=== PATIENT | female | born 1990 | race Caucasian/White ===

== ENCOUNTER 2017-02-27 06:43 | Inpatient (IN) | payer OTHER ==
[2017-02-27] MEDS ORDERED: cefOXitin 2 GM Vial ONE (06:44)
[2017-02-27] MEDS ORDERED: Gabapentin 300 MG Cap PO ONE (07:00)
[2017-02-27] MEDS ORDERED: Celecoxib 200 MG Cap PO ONE (07:00)
[2017-02-27] MEDS ORDERED: Scopolamine 1.5 MG Transdermal Patch TRDERM SCH (07:00)
[2017-02-27] MEDS: Acetaminophen 500 MG Tab PO ONE ×2 (07:23→07:24)
[2017-02-27] MEDS ORDERED: Dextrose 5%-Lactated Ringers 1,000 ML IV SCH ×2 (07:30→12:15)
[2017-02-27] MEDS ORDERED: Propofol 200 MG/20 ML SDV ONE (08:08)
[2017-02-27] MEDS ORDERED: Neostigmine Methylsulfate 1 MG/ML 5 ML Syringe ONE (08:08)
[2017-02-27] MEDS ORDERED: Ondansetron 4 MG/2 ML SDV ONE ×2 (08:08→11:31)
[2017-02-27] MEDS ORDERED: fentaNYL 250 MCG/5 ML SDV ONE (08:08)
[2017-02-27] MEDS ORDERED: Midazolam 1 MG/ML 2 ML SDV ONE (08:08)
[2017-02-27] MEDS ORDERED: Succinylcholine/Normal Saline 200 MG/10 ML Syringe ONE (08:08)
[2017-02-27] MEDS ORDERED: Dexamethasone 4 MG/ML SDV ONE (08:08)
[2017-02-27] MEDS ORDERED: Rocuronium 50 MG/5 ML Vial ONE (08:08)
[2017-02-27] MEDS ORDERED: cefOXitin 2 GM in Sodium Chloride 0.9% 50 ML IV ONE (08:30)
[2017-02-27] MEDS: Ropivacaine 60 ML, Dexamethasone 8 MG, EPINEPHrine 0.4 MG, Sodium Chloride 0.9% 17.6 ML NERVRT ONE ×8 (08:45→16:22)
[2017-02-27] MEDS ORDERED: Ketamine 500 MG/5 ML MDV IV ONE (12:00)
[2017-02-27] MEDS ORDERED: Lidocaine 2% 100 MG/5 ML Syringe IVPUSH ONE (12:00)
[2017-02-27] MEDS ORDERED: hydrOXYzine HCl 50 MG/ML SDV IM PRN (13:00)
[2017-02-27] MEDS ORDERED: Labetalol 20 MG/4 ML Syringe IVPUSH PRN (13:00)
[2017-02-27] MEDS ORDERED: SCOPOLAMINE PATCH ASK TOP SCH (13:00)
[2017-02-27] MEDS ORDERED: Ondansetron 4 MG/2 ML SDV IVPUSH PRN (13:00)
[2017-02-27] MEDS: Lidocaine 0.4%/D5W 2 GM/500 ML BAG IV SCH (13:25)
[2017-02-27] MEDS: Pantoprazole 40 MG Vial IVPUSH SCH (13:26)
[2017-02-27] MEDS: Gabapentin 250 MG/5 ML Solution ML 470 ML Bottle PO SCH ×2 (14:41→21:18)
[2017-02-27] MEDS: cefOXitin 2 GM in Sodium Chloride 0.9% 50 ML IV SCH ×2 (14:41→21:12)
[2017-02-27] MEDS ORDERED: MVI, Adult with Vitamin K 10 ML, Thiamine 200 MG, Chromium/Copper/Mang/Selen/Zn 1 ML in... IV SCH ×4 (16:00)
[2017-02-27] MEDS: Acetaminophen Soln 650 MG/20.3 ML UD Cup PO SCH ×2 (16:23→21:18)
[2017-02-27] MEDS: Heparin Sodium 5,000 Units/ML Vial SUBCUT SCH (17:14)
[2017-02-27] MEDS ORDERED: Metoclopramide 10 MG/2 ML SDV IVPUSH PRN (17:33)
[2017-02-27] MEDS ORDERED: diphenhydrAMINE 50 MG/ML SDV IVPUSH PRN (17:34)
[2017-02-27] MEDS ORDERED: Phenol/Sodium Phenolate Mouthwash 180 ML Bottle PO PRN (23:14)
[2017-02-28] MEDS: cefOXitin 2 GM in Sodium Chloride 0.9% 50 ML IV SCH ×2 (02:00→07:59)
[2017-02-28] MEDS: Lidocaine 0.4%/D5W 2 GM/500 ML BAG IV SCH ×2 (02:19→05:17)
[2017-02-28] MEDS ORDERED: Iohexol 647 MG/ML 50 ML SDV PO STA (04:10)
[2017-02-28] MEDS: Acetaminophen Soln 650 MG/20.3 ML UD Cup PO SCH ×4 (05:13→21:13)
[2017-02-28] MEDS: Heparin Sodium 5,000 Units/ML Vial SUBCUT SCH ×2 (05:13→17:46)
[2017-02-28] MEDS: Celecoxib 200 MG Cap PO SCH (07:59)
[2017-02-28] MEDS ORDERED: Dextrose 5%-Lactated Ringers 1,000 ML IV SCH ×2 (08:25→08:30)
--- NOTE | 2017-02-28 09:03 | CR ---
Limited upper GI The patient is status post Soo-en-Y gastric bypass. There are left upper quadrant drains in place. There is no extravasation of contrast. The gastric pouch empties readily into a nondilated Soo limb . No complications are evident. Impression: 1. Status post Soo-en-Y gastric bypass without evidence for complication.
[2017-02-28] MEDS: SCOPOLAMINE PATCH CHECK TOP SCH (09:24)
[2017-02-28] MEDS: Gabapentin 250 MG/5 ML Solution ML 470 ML Bottle PO SCH ×3 (09:27→21:15)
[2017-02-28] MEDS: Pantoprazole 40 MG Vial IVPUSH SCH (11:09)
--- NOTE | 2017-02-28 12:50 | PCM.SURGPN ---
- General Info Date of Service: 02/28/17 Date of Surgery/Procedure: 02/27/17 POD#: 1 Functional Status: Reports: pain controlled, ambulating - Review of Systems General: Reports: No Symptoms Pulmonary: Reports: no symptoms Cardiovascular: Reports: No Symptoms Gastrointestinal: Reports: No symptoms Systems Review Comment:: Patient reports her abdominal pain is well controlled with only minimal pain in LUQ. She has been ambulating well. Patient slightly tachycardic overnight with HRs ranging 105-117. Her intake was 3795mL. - Patient Data Vitals - most recent: Last Vital Signs Temp 37.2 C 02/28/17 11:05 Pulse 86 02/28/17 11:05 Resp 15 02/28/17 11:05 BP 125/74 02/28/17 11:05 Pulse Ox 94 L 02/28/17 11:05 Weight - most recent: 150.956 kg I&O - last 24 hours: Intake & Output 02/27/17 02/28/17 02/28/17 22:59 06:59 14:59 Intake Total 1372 1798 647 Output Total 240 2530 750 Balance 1132 -732 -103 Med Orders - Current: Current Medications Acetaminophen (Tylenol) 650 mg PO Q6H [facility] Last Admin: 02/28/17 09:24 Dose: 650 mg Celecoxib (Celebrex) 200 mg PO DAILY@0800 [facility] Last Admin: 02/28/17 07:59 Dose: 200 mg Cyanocobalamin (Vitamin B12) 1,000 mcg IM ONETIME ONE Stop: 03/01/17 09:01 Diphenhydramine HCl (Benadryl) 25 - 50 mg IVPUSH Q4H PRN PRN Reason: ITCHING Gabapentin (Neurontin) 300 mg PO TID [facility] Last Admin: 02/28/17 09:27 Dose: 300 mg Heparin Sodium (Porcine) (Heparin Sodium) 5,000 units SUBCUT Q12H [facility] Last Admin: 02/28/17 05:13 Dose: 5,000 units Hydroxyzine HCl (Vistaril) 75 - 100 mg IM Q4H PRN PRN Reason: PAIN NOT CONTROLLED BY APPLICATION INTEGRATION ARCHITECT Multivitamins/Minerals 10 ml/Thiamine HCl 200 mg/ Chromium/Copper/Manganese/ Seleni/Zn 1 ml/ Dextrose/Lactated Ringer's 1,013 mls @ 175 mls/hr IV DAILY@ 1600 [facility] Last Admin: 02/27/17 16:22 Dose: 175 mls/hr Dextrose/Lactated Ringer's (Dextrose 5%-Lactated Ringers) 1,000 mls @ 100 mls/ hr IV ASDIRECTED [facility] Last Admin: 02/28/17 11:09 Dose: 100 mls/hr Labetalol HCl (Normodyne) 5 - 15 mg IVPUSH Q1H PRN PRN Reason: SBP over 160 OR DBP over 95 Metoclopramide HCl (Reglan) 10 mg IVPUSH Q6H PRN PRN Reason: nausea Scopolamine Patch (Check) 1 each TOP DAILY [facility] Last Admin: 02/28/17 09:24 Dose: Not Given Ondansetron HCl (Zofran) 4 mg IVPUSH Q4H PRN PRN Reason: Nausea/Vomiting Last Admin: 02/27/17 16:25 Dose: 4 mg Pantoprazole Sodium (Protonix Iv) 40 mg IVPUSH Q24H [facility] Last Admin: 02/28/17 11:09 Dose: 40 mg Phenol (Phenaseptic Liquid) 0 ml PO ASDIRECTED PRN PRN Reason: Sore Throat Last Admin: 02/27/17 23:45 Dose: 2 sprays Scopolamine (Transderm-Scop) 1.5 mg TRDERM Q72H [facility] Stop: 03/02/17 05:00 Last Admin: 02/27/17 07:25 Dose: 1.5 mg Scopolamine (Transderm-Scop) 1.5 mg TOP ASDIRECTED [facility] Stop: 03/02/17 16:00 Discontinued Medications Acetaminophen (Tylenol Extra Strength) 1,000 mg PO ONETIME ONE Stop: 02/27/17 07:01 Last Admin: 02/27/17 07:24 Dose: 500 mg Cefoxitin Sodium (Mefoxin) Confirm Administered Dose 2 gm .ROUTE .STK-MED ONE Stop: 02/27/17 06:45 Last Admin: 02/27/17 09:08 Dose: 2 gm Celecoxib (Celebrex) 200 mg PO ONETIME ONE Stop: 02/27/17 07:01 Last Admin: 02/27/17 07:21 Dose: 200 mg Ropivacaine 60 ml/Dexamethasone 8 mg/Epinephrine HCl 0.4 mg/ Sodium Chloride 17.6 ml 0 ml NERVRT ONETIME ONE Stop: 02/27/17 12:01 Last Admin: 02/27/17 16:22 Dose: Not Given Dexamethasone (Dexamethasone) Confirm Administered Dose 4 mg .ROUTE .STK-MED ONE Stop: 02/27/17 08:09 Fentanyl (Sublimaze) Confirm Administered Dose 250 mcg .ROUTE .STK-MED ONE Stop: 02/27/17 08:09 Gabapentin (Neurontin) 300 mg PO ONETIME ONE Stop: 02/27/17 07:01 Last Admin: 02/27/17 07:23 Dose: 300 mg Glycopyrrolate () Confirm Administered Dose 1 mg .ROUTE .STK-MED ONE Stop: 02/27/17 08:09 Lidocaine HCl/Dextrose (Lidocaine 2 Gm/D5w 500 Ml) 2 gm in 500 mls @ 30 mls/hr IV .[id number] [facility] PRN Reason: 2 MG/MIN Stop: 02/28/17 11:00 Last Admin: 02/28/17 05:17 Dose: Not Given Ketamine HCl 100 mg/ Sodium (Chloride) 100 mls @ 17.8 mls/hr IV ASDIRECTED [facility] Stop: 02/27/17 13:45 Dextrose/Lactated Ringer's (Dextrose 5%-Lactated Ringers) 1,000 mls @ 100 mls/ hr IV ASDIRECTED [facility] Last Admin: 02/27/17 07:28 Dose: 100 mls/hr Cefoxitin Sodium 2 gm/ Sodium (Chloride) 50 mls @ 100 mls/hr IV ONETIME ONE Stop: 02/27/17 08:59 Last Admin: 02/27/17 08:17 Dose: 100 mls/hr Dextrose/Lactated Ringer's (Dextrose 5%-Lactated Ringers) 1,000 mls @ 175 mls/ hr IV ASDIRECTED [facility] Last Admin: 02/27/17 21:16 Dose: 175 mls/hr Cefoxitin Sodium 2 gm/ Sodium (Chloride) 50 mls @ 100 mls/hr IV Q6H [facility] Stop: 02/28/17 08:29 Last Admin: 02/28/17 07:59 Dose: 100 mls/hr Dextrose/Lactated Ringer's (Dextrose 5%-Lactated Ringers) 1,000 mls @ 100 mls/ hr IV ASDIRECTED [facility] Iohexol (Omnipaque-300) 50 ml PO ONETIME STA Stop: 02/28/17 04:11 Last Admin: 02/28/17 04:18 Dose: 50 ml Ketamine HCl (Ketalar) 30 mg IV ONETIME ONE Stop: 02/27/17 12:01 Last Admin: 02/27/17 20:19 Dose: Not Given Lidocaine HCl (Xylocaine 2%) 145 mg IVPUSH ONETIME ONE Stop: 02/27/17 12:01 Last Admin: 02/27/17 20:19 Dose: Not Given Midazolam HCl (Versed 1 Mg/Ml) Confirm Administered Dose 2 mg .ROUTE .STK-MED ONE Stop: 02/27/17 08:09 Neostigmine Methylsulfate (Neostigmine) Confirm Administered Dose 5 mg .ROUTE .STK-MED ONE Stop: 02/27/17 08:09 Ondansetron HCl (Zofran) Confirm Administered Dose 4 mg .ROUTE .STK-MED ONE Stop: 02/27/17 08:09 Ondansetron HCl (Zofran) Confirm Administered Dose 4 mg .ROUTE .STK-MED ONE Stop: 02/27/17 11:32 Last Admin: 02/27/17 11:38 Dose: 4 mg Propofol (Diprivan 20 Ml) Confirm Administered Dose 200 mg .ROUTE .STK-MED ONE Stop: 02/27/17 08:09 Rocuronium [place] (Zemuron) Confirm Administered Dose 50 mg .ROUTE .STK-MED ONE Stop: 02/27/17 08:09 Sodium Chloride (Normal Saline) 500 ml IRR .STK-MED ONE Stop: 02/27/17 09:10 Last Admin: 02/27/17 09:09 Dose: 500 ml Succinylcholine Chloride (Succinylcholine In Ns Pf) Confirm Administered Dose 200 mg .ROUTE .STK-MED ONE Stop: 02/27/17 08:09 - Exam Wound/Incisions: dressing dry and intact General: alert, oriented HEENT: Pupils equal, Pupils reactive, EOMI, Mucous membr. moist/pink Neck: supple Lungs: Clear to auscultation, Normal respiratory effort Cardiovascular: Regular Rate, Regular Rhythm Abdomen: bowel sounds present, soft Extremities: no edema Skin: warm, dry, intact - Problem List Review Problem List Initiated/Reviewed/Updated: Yes - My Orders Last 24 Hours: Active Orders 24 hr Category Date Time Status Ambulate [RC] ASDIRECTED Care 02/27/17 12:34 Active Cardiac Monitoring [RC] .As Directed Care 02/27/17 12:39 Active Communication Order [RC] Q4HR Care 02/27/17 12:34 Active Communication Order [RC] ROUTINE Care 02/28/17 08:26 Active Drain Management [RC] ASDIRECTED Care 02/27/17 12:34 Active Salazar Catheter Insertion [Insert Urinary Catheter] [OM. Care 02/27/17 12:45 Ordered PC] Q24H Intake and Output [RC] QSHIFT Care 02/27/17 12:34 Active May Shower [RC] ASDIRECTED Care 02/28/17 08:24 Active Notify Provider Intake and Out [RC] ASDIRECTED Care 02/27/17 12:34 Active Overnight Pulse Oximetry [RC] Click To Edit Care 02/27/17 12:39 Active Oxygen Therapy [RC] PRN Care 02/27/17 12:34 Active Pulse Oximetry [RC] CONTINUOUS Care 02/27/17 12:34 Active RT BiPAP/CPAP [RC] ASDIRECTED Care 02/27/17 12:34 Active Up to Chair [RC] ASDIRECTED Care 02/27/17 12:34 Active Vital Signs [RC] Q4H Care 02/27/17 12:34 Active Consult to Bariatric Services [CONS] Routine Cons 02/27/17 12:34 Active Consult to Dry Kiln Feeder [CONS] Routine Cons 02/27/17 12:34 Active Consult to Pharmacy [CONS] Routine Cons 02/27/17 12:34 Active Respiratory Care Assess and Treatment [CONS] Routine Cons 02/27/17 12:34 Active Bariatric Diet [DIET] Diet 02/28/17 Breakfast Active Acetaminophen [Tylenol] Med 02/27/17 16:00 Active 650 mg PO Q6H Celecoxib [CeleBREX] Med 02/27/17 13:00 Active 200 mg PO DAILY@0800 Cyanocobalamin (Vitamin B12) [Vitamin B12] Med 03/01/17 09:00 Once 1,000 mcg IM ONETIME ONE Dextrose 5%-Lactated Ringers 1,000 ml Med 02/28/17 08:30 Active IV ASDIRECTED Gabapentin [Neurontin] Med 02/27/17 14:00 Active 300 mg PO TID Heparin Sodium Med 02/27/17 18:00 Active 5,000 units SUBCUT Q12H Labetalol [Normodyne] Med 02/27/17 13:00 Active 5 - 15 mg IVPUSH Q1H PRN MVI, Adult with Vitamin K [Infuvite Adult] 10 ml Med 02/27/17 16:00 Active Thiamine [Vitamin B-1] 200 mg Chromium/Copper/Guerrero/Selen/Zn [Multitrace-5 Concentrate ] 1 ml Dextrose 5%-Lactated Ringers 1,000 ml IV DAILY@1600 Metoclopramide [Reglan] Med 02/27/17 17:33 Active 10 mg IVPUSH Q6H PRN Non-Formulary Medication [NF Drug] Med 02/27/17 13:00 Active 1 each TOP DAILY Ondansetron [Zofran] Med 02/27/17 13:00 Active 4 mg IVPUSH Q4H PRN Pantoprazole [ProTONIX IV] Med 02/27/17 12:00 Active 40 mg IVPUSH Q24H Phenol/Sodium Phenolate [Phenaseptic Liquid] Med 02/27/17 23:14 Active 0 ml PO ASDIRECTED PRN Scopolamine [Transderm-Scop] Med 02/27/17 13:00 Active 1.5 mg TOP ASDIRECTED diphenhydrAMINE [Benadryl] Med 02/27/17 17:34 Active 25 - 50 mg IVPUSH Q4H PRN hydrOXYzine HCl [Vistaril] Med 02/27/17 13:00 Active 75 - 100 mg IM Q4H PRN Abdominal Binder [OM.PC] Per Unit Routine Oth 02/27/17 12:34 Ordered DME for Inpatients [OM.PC] Per Unit Routine Oth 02/27/17 12:34 Ordered PT Screening [OM.PC] Routine Oth 02/27/17 12:34 Active Pulse Oximetry Continuous Monitoring [OM.PC] Routine Oth 02/27/17 12:39 Ordered Sequential Compression Device [OM.PC] Per Unit Routine Oth 02/27/17 12:34 Ordered Specialty Bed [OM.PC] Continuous Oth 02/27/17 12:34 Ordered Medication Orders Acetaminophen (Tylenol) 650 mg PO Q6H [facility] Last Admin: 02/28/17 09:24 Dose: 650 mg Admin: 02/28/17 05:13 Dose: 650 mg Admin: 02/27/17 21:18 Dose: 650 mg Admin: 02/27/17 16:23 Dose: 650 mg Celecoxib (Celebrex) 200 mg PO DAILY@0800 [facility] Last Admin: 02/28/17 07:59 Dose: 200 mg Cyanocobalamin (Vitamin B12) 1,000 mcg IM ONETIME ONE Stop: 03/01/17 09:01 Diphenhydramine HCl (Benadryl) 25 - 50 mg IVPUSH Q4H PRN PRN Reason: ITCHING Gabapentin (Neurontin) 300 mg PO TID [facility] Last Admin: 02/28/17 09:27 Dose: 300 mg Admin: 02/27/17 21:18 Dose: 300 mg Admin: 02/27/17 14:41 Dose: Heparin Sodium (Porcine) (Heparin Sodium) 5,000 units SUBCUT Q12H [facility] Last Admin: 02/28/17 05:13 Dose: 5,000 units Admin: 02/27/17 17:14 Dose: 5,000 units Hydroxyzine HCl (Vistaril) 75 - 100 mg IM Q4H PRN PRN Reason: PAIN NOT CONTROLLED BY APPLICATION INTEGRATION ARCHITECT Multivitamins/Minerals 10 ml/Thiamine HCl 200 mg/ Chromium/Copper/Manganese/ Seleni/Zn 1 ml/ Dextrose/Lactated Ringer's 1,013 mls @ 175 mls/hr IV DAILY@ 1600 [facility] Last Admin: 02/27/17 16:22 Dose: 175 mls/hr Dextrose/Lactated Ringer's (Dextrose 5%-Lactated Ringers) 1,000 mls @ 100 mls/ hr IV ASDIRECTED [facility] Last Admin: 02/28/17 11:09 Dose: 100 mls/hr Labetalol HCl (Normodyne) 5 - 15 mg IVPUSH Q1H PRN PRN Reason: SBP over 160 OR DBP over 95 Metoclopramide HCl (Reglan) 10 mg IVPUSH Q6H PRN PRN Reason: nausea Scopolamine Patch (Check) 1 each TOP DAILY [facility] Last Admin: 02/28/17 09:24 Dose: Ondansetron HCl (Zofran) 4 mg IVPUSH Q4H PRN PRN Reason: Nausea/Vomiting Last Admin: 02/27/17 16:25 Dose: 4 mg Pantoprazole Sodium (Protonix Iv) 40 mg IVPUSH Q24H [facility] Last Admin: 02/28/17 11:09 Dose: 40 mg Admin: 02/27/17 13:26 Dose: 40 mg Phenol (Phenaseptic Liquid) 0 ml PO ASDIRECTED PRN PRN Reason: Sore Throat Last Admin: 02/27/17 23:45 Dose: 2 sprays Scopolamine (Transderm-Scop) 1.5 mg TRDERM Q72H [facility] Stop: 03/02/17 05:00 Last Admin: 02/27/17 07:25 Dose: 1.5 mg Scopolamine (Transderm-Scop) 1.5 mg TOP ASDIRECTED [facility] Stop: 03/02/17 16:00 - Assessment Assessment (Free Text/Narrative):: 1. Gastric bypass sohan-en-y, laparoscopic 2. Liver biopsy 3. Hernia repair paraesophageal, laparoscopic
[2017-02-28] MEDS ORDERED: Ondansetron 4 MG Tab.DIS PO PRN (14:29)
[2017-03-01 04:38] VITALS: BP 116/62
[2017-03-01] MEDS: Acetaminophen Soln 650 MG/20.3 ML UD Cup PO SCH (04:39)
[2017-03-01] MEDS: Heparin Sodium 5,000 Units/ML Vial SUBCUT SCH (05:38)
[2017-03-01] MEDS: Celecoxib 200 MG Cap PO SCH (08:29)
[2017-03-01] MEDS: SCOPOLAMINE PATCH CHECK TOP SCH (08:30)
[2017-03-01] MEDS ORDERED: Cyanocobalamin (Vitamin B12) 1,000 MCG/ML SDV IM ONE (09:00)
--- NOTE | 2017-03-01 13:18 | DISCH ---
ADMISSION DIAGNOSIS: Morbid obesity. DISCHARGE DIAGNOSES: Status post Soo-en-Y gastric bypass surgery, Carlos-Cut needle liver biopsy, and repair of paraesophageal diaphragmatic hernia. HISTORY: Imani Ashley is a 26-year-old female with longstanding history of morbid obesity and increasing comorbidities. After preoperative evaluation and discussion of possible risks and possible complications, she wished to proceed with surgical procedure. HOSPITAL COURSE: Imani had her surgery on 02/27/2017. She had no operative complications. On postop day #1, she was started on a step-2 with no cereal gastric bypass diet. Her activity was good. Her oral intake was adequate and IV was discontinued. On postop day #2, she was able to be discharged to home. Activity good. Vital signs were stable. Her oral intake was adequate. She reports pain was controlled. OBJECTIVE: GENERAL: Imani is a 26-year-old female. VITAL SIGNS: Height is 5 feet 5 inches. Weight is 332 pounds. TPR 98.7, 72, 20, blood pressure 116/62. HEENT: Negative. NECK: Supple. HEART: Regular rate and rhythm. LUNGS: Clear. ABDOMEN: 4x4 over JONH drain site. Sutures in place. Abdominal binder is on. EXTREMITIES: Without peripheral edema. DISPOSITION: Discharged to home. CONDITION: Stable and improving. FOLLOWUP APPOINTMENT: Ramya Camarena PA-C, on 03/13/2017 at 10 a.m. To be seen at [place], [place]. DISCHARGE MEDICATIONS: New prescriptions; 1. Ibuprofen 400 mg every 6 hours for 14 days. 2. Tylenol 650 mg oral q.6 hours, 20.3 mL for 2 weeks. 3. Milk of magnesia 30 mL. Two were sent home with the patient to take one when she gets home and repeat in morning if no bowel movement. 4. Omeprazole 20 mg p.o. twice daily, #28. 5. Zofran 4 mg q.4 hours p.r.n. nausea. 6. Vitamin B12 1000 mcg sublingual. 7. Multivitamin one tablet twice daily. 8. Stop taking the calcium citrate-vitamin D3 and vitamin B complex until after next appointment. DISCHARGE DIET: Drink 8 to 10 glasses of water a day. Step-2 gastric bypass diet without cereal for 2 weeks. ACTIVITY: Activity after discharge, no lifting greater than 10 pounds for 2 weeks, walk 6 to 8 times daily inside your home. Driving after discharge, do not drive while on pain medication. May shower. Notify provider if any fever, nausea, or vomiting. Wound incision care, keep site clean and dry. Wear abdominal binder for 2 weeks and then as tolerated. SPECIAL INSTRUCTIONS: Use incentive spirometer 10 times every hour while awake for 2 weeks.
--- NOTE | 2017-03-02 13:21 | OR ---
DATE OF PROCEDURE: 02/27/2017 PREOPERATIVE DIAGNOSIS: Morbid obesity. POSTOPERATIVE DIAGNOSES: 1. Morbid obesity. 2. Marked hepatomegaly. 3. Paraesophageal diaphragmatic hernia. OPERATIVE PROCEDURE: 1. Laparoscopic Soo-en-Y gastric bypass along with a gastroenterostomy (93020). 2. Carlos-Cut needle liver biopsy (09626). 3. Repair of paraesophageal diaphragmatic hernia (57781). ANESTHESIA: General. [employer]: [employer]. INDICATIONS FOR PROCEDURE: This is a 26-year-old female presenting with longstanding morbid obesity and increasingly significant comorbidities. After preoperative evaluation and discussion, she wished to proceed with a gastric bypass procedure. Potential risks including bleeding and perforation of the viscera, possible leaks and/or bowel obstruction over time as well as the remote possibility of cardiopulmonary, septic, or hemorrhagic complications leading to were all discussed, and the patient wishes to proceed. DETAILS OF PROCEDURE: The patient was taken to the operating room and placed in a supine position. After general endotracheal anesthesia was induced, she was converted to a lithotomy position. Bilateral transversus abdominis plain blocks were then placed with 40 mL of saline containing ropivacaine, dexamethasone, and epinephrine injected bilaterally under direct ultrasound guidance. Additionally, the abdomen was prepped and draped. At 15 cm inferior and 5 cm left of xiphoid process, transverse incision was made. The peritoneal cavity entered under direct vision with Optiview trocar, inflated to 15 mmHg pressure with CO2. Laparoscope was then reinserted. No underlying trocar insertion site injuries were seen. Following this, 5 additional trocars were placed across the upper mid abdomen and general exploration was undertaken. The patient was noted to have a marked hepatomegaly with liver volume being roughly 2 to 3 times normal and the liver somewhat fatty infiltrated. Following this, biopsies were obtained of the left lobe of the liver. Minimal bleeding from the biopsy sites was controlled with electrocautery. The omentum was then divided in the midline up to the level of the transverse colon. This allowed identification of small bowel at the ligament of Treitz. Small bowel was then traced out 200 cm distal to that point, it was divided transversely with a RAFAEL stapler. It was then traced out initial 200 cm where the [id number] enteroenterostomy was accomplished with internal firing of the Endo-RAFAEL 60 mm stapler. The common opening was then closed transversely with the same stapler and angles anastomosed, and mesenteric defect approximated with some 0 Ethibond stitch along with fibrin sealant, divided end of the Soo limb was then from the mesentery for a few centimeters, which allowed an antecolic position of the Soo limb up to the level of esophagogastric junction without tension. The liver was then retracted anteriorly. The patient was noted to have a moderate-sized diaphragmatic hernia. This had a significant paraesophageal component with it being a prolapse of the perigastric fat and a portion of the fundus in the plane anterior to the portion of the esophagus. This was reduced and the peritoneum overlying incised and reflected downward. An anterior repair of the diaphragmatic hernia was then accomplished with a series of 0 Ethibond sutures reinforced with PTFE pledgets. At this point, the gastrointestinal balloon catheter was inflated to 15 mL and pulled up snugly against the EG junction. Gastric wall over the apex balloon was then marked with electrocautery and balloon catheter deflated and withdrawn. The lesser omental tissue adjacent to gastric cardia was then incised allowing dissection behind the stomach level coming to the cauterized ana, and the gastric cardia. At that level, the pouch was initiated with a transverse firing of the RAFAEL stapler. Two additional firings of RAFAEL stapler up to and through the angle of His were accomplished. Both staple lines were inspected and found to be intact. The anvil of a 21 mm EEA stapler was attached to a [place] sump type tube. The latter was brought down through the mouth and taken out through a small opening in the gastric pouch and this allowed then the anvil to be pulled down within the gastric pouch as well. The divided end of the Soo limb was then opened and the main body of the EEA stapler passed several centimeters in the lumen of small bowel brought up through the anvil and united with it, thus creating the gastrojejunostomy. Upon removal of the stapler, double donuts of mucosa were noted within it. Small bowel was closed off with a vascular staple line. Gastrojejunostomy was then reinforced with some 3-0 Vicryl seromuscular stitch along with fibrin sealant. Leak test was accomplished with injection of 120 mL of air in the gastric pouch while submerged with a cefoxitin-containing saline solution, no leaks were identified. A Isaiah-Monteiro drain was then placed at the jejunostomy taken out through the subcostal trocar site on the left side. The trocars were sequentially removed, the peritoneal cavity deflated. Incisions were closed with some 4-0 Vicryl skin stitch and the patient was taken to the recovery room in satisfactory condition. There were no evident complications. Moises Eckert MD /[id number]
== END 2017-03-01 08:35 | disposition home or self-care (01) | DRG 621 ==
LOC: JP.MS 06:43 → JP.SDS 06:44 → EDSTATUS 09:15 → JP.2SS 10:20
PROVIDERS: ADMIT Surgery; ATTEND Surgery
PROC: 0D164ZL Bypass Stomach to Transverse Colon, Percutaneous Endoscopic Approach (ICD-10-PCS; principal; 2017-02-27)
PROC: 0FB04ZX Excision of Liver, Percutaneous Endoscopic Approach, Diagnostic (ICD-10-PCS; principal; 2017-02-27)
PROC: 0BQS4ZZ (ICD-10-PCS; principal; 2017-02-27)
DX: E66.01 Morbid (severe) obesity due to excess calories (principal); E03.9 Hypothyroidism, unspecified; Z68.43 Body mass index [BMI] 50.0-59.9, adult; K44.9 Diaphragmatic hernia without obstruction or gangrene
CPT/HCPCS: 36415; 74240; 74240-26; 86850; 86900; 86901; 88307; 88313; 94762; A9270-GY; C9113; J0171; J0694; J1100; J1644; J2001; J2250; J2405; J2704; J2795; J3010; J3411; J3420; J7030; J7040; J7042; J7050; Q9967